=== PATIENT | male | born 1940 | race Caucasian/White ===

== ENCOUNTER 2021-10-10 14:38 | Inpatient (IN) ==
[2021-10-11 06:52] LABS: Basophils % 0.2 %; Eosinophils # 0.4 K/mcL (0.0-0.6); Hemoglobin 9.8 g/dL (12.9-16.9); Immature Granulocytes % 0.7 % (0-4); Lymphocytes # 2.1 K/mcL (0.6-4.6); Lymphocytes % 23.8 %; Mean Corpuscular HGB Conc 32.7 g/dL (31.6-35.5); Mean Corpuscular Volume 88.8 fL (83.0-100.0); Monocytes # 0.8 K/mcL (0.0-1.3); Monocytes % 9.4 %; Neutrophils # 5.5 K/mcL (1.6-8.9); Platelet Count 243 K/mcL (140-400); Red Blood Count 3.38 M/mcL (4.19-5.50); Segmented Neutrophils % 61.9 %; White Blood Count 8.8 K/mcL (4.3-11.1)
[2021-10-11 07:03] LABS: INR 1.1; Prothrombin Time 12.6 Seconds (9.4-12.1)
[2021-10-11 07:19] LABS: Calcium 9.4 mg/dL (8.6-10.3); Potassium 4.7 mEq/L (3.5-5.1)
[2021-10-11] MEDS ORDERED: *HR* Dextrose 50 % in Water (Syg) 50 ML SYRINGE IVP PRN (08:36)
[2021-10-11] MEDS ORDERED: D5% in Water 1,000 ML IVC PRN (08:36)
[2021-10-11] MEDS ORDERED: Dextrose 4 GM Chewable Tablets PO PRN ×2 (08:36)
[2021-10-11] MEDS: *HR* GlyBURIDE 2.5 MG TABLET PO SCH ×2 (08:50→21:08)
[2021-10-11] MEDS: lisinopriL 5 MG TABLET PO SCH (08:51)
[2021-10-11] MEDS: Insulin LISPRO 300 UNITS/3 ML VIAL SUBQ SCH ×4 (08:51→21:00)
[2021-10-11] MEDS: rOPINIRole 1 MG TABLET PO SCH (08:51)
[2021-10-11] MEDS: *HR* Amiodarone 200 MG TABLET PO SCH ×2 (08:51→21:09)
[2021-10-11] MEDS: *HR* Pioglitazone 30 MG TABLET PO SCH (08:53)
[2021-10-11] MEDS: Aspirin Enteric Coated 81 MG Tablet PO SCH (08:53)
[2021-10-11] MEDS: Metoprolol XL (24 HR) Succ 50 MG TAB.ER.24H PO SCH (08:53)
[2021-10-11] MEDS ORDERED: 0.9 % Sodium Chloride 1,000 ML IVC SCH (15:45)
[2021-10-11] MEDS: *HR* Heparin 5,000 UNIT/ML VIAL SQ SCH (21:09)
[2021-10-12] MEDS: *HR* Heparin 5,000 UNIT/ML VIAL SQ SCH ×3 (05:17→21:34)
[2021-10-12 06:23] LABS: Basophils % 0.3 %; Eosinophils # 0.3 K/mcL (0.0-0.6); Eosinophils % 3.3 %; Hemoglobin 9.3 g/dL (12.9-16.9); Immature Granulocytes % 0.9 % (0-4); Lymphocytes # 2.1 K/mcL (0.6-4.6); Lymphocytes % 21.9 %; Mean Corpuscular HGB Conc 32.1 g/dL (31.6-35.5); Mean Corpuscular Volume 90.3 fL (83.0-100.0); Mean Platelet Volume 9.9 fL (9.4-12.4); Monocytes # 1.1 K/mcL (0.0-1.3); Monocytes % 11.1 %; Platelet Count 254 K/mcL (140-400); Red Blood Count 3.21 M/mcL (4.19-5.50); Red Cell Distribution Width 13.2 % (11.5-14.5); Segmented Neutrophils % 62.5 %; White Blood Count 9.7 K/mcL (4.3-11.1)
[2021-10-12 07:07] LABS: BUN/Creatinine Ratio 26 (6-26); Blood Urea Nitrogen 34 mg/dL (8-23); Carbon Dioxide 28 mEq/L (23-29); Chloride 102 mEq/L (98-107); Glucose 236 mg/dL (70-105); Osmolality,Calculated 301 (280-300); Potassium 4.4 mEq/L (3.5-5.1); Sodium 138 mEq/L (136-145); eGFR For African Americans > 60 (> 60); eGFR For Non-African Americans 52 (> 60)
[2021-10-12] MEDS: Aspirin Enteric Coated 81 MG Tablet PO SCH (08:51)
[2021-10-12] MEDS: *HR* Amiodarone 200 MG TABLET PO SCH ×2 (08:51→21:34)
[2021-10-12] MEDS: *HR* GlyBURIDE 2.5 MG TABLET PO SCH ×2 (08:51→17:10)
[2021-10-12] MEDS: *HR* Pioglitazone 30 MG TABLET PO SCH (08:51)
[2021-10-12] MEDS: rOPINIRole 1 MG TABLET PO SCH (08:51)
[2021-10-12] MEDS: lisinopriL 5 MG TABLET PO SCH (08:51)
[2021-10-12] MEDS: Metoprolol XL (24 HR) Succ 50 MG TAB.ER.24H PO SCH (08:51)
[2021-10-12] MEDS: Insulin LISPRO 300 UNITS/3 ML VIAL SUBQ SCH ×4 (08:52→21:34)
[2021-10-12] MEDS: *HR* HYDROcodone/Acet 5/325 mg TABLET PO PRN ×2 (11:50→21:35)
[2021-10-12] MEDS: Sennosides 8.6 MG TABLET PO SCH (21:33)
[2021-10-13] MEDS: *HR* Heparin 5,000 UNIT/ML VIAL SQ SCH ×3 (05:23→20:46)
[2021-10-13] MEDS: *HR* HYDROcodone/Acet 5/325 mg TABLET PO PRN (05:35)
[2021-10-13] MEDS: *HR* Amiodarone 200 MG TABLET PO SCH ×2 (08:42→20:47)
[2021-10-13] MEDS: rOPINIRole 1 MG TABLET PO SCH (08:42)
[2021-10-13] MEDS: Metoprolol XL (24 HR) Succ 50 MG TAB.ER.24H PO SCH (08:42)
[2021-10-13] MEDS: *HR* GlyBURIDE 2.5 MG TABLET PO SCH ×2 (08:42→16:37)
[2021-10-13] MEDS: lisinopriL 5 MG TABLET PO SCH (08:42)
[2021-10-13] MEDS: Insulin LISPRO 300 UNITS/3 ML VIAL SUBQ SCH ×4 (08:42→20:47)
[2021-10-13] MEDS: Aspirin Enteric Coated 81 MG Tablet PO SCH (08:42)
[2021-10-13] MEDS: *HR* Pioglitazone 30 MG TABLET PO SCH (08:42)
[2021-10-13] MEDS: Sennosides 8.6 MG TABLET PO SCH ×2 (08:42→20:46)
[2021-10-14] MEDS: *HR* Heparin 5,000 UNIT/ML VIAL SQ SCH ×3 (05:34→20:46)
[2021-10-14] MEDS: Metoprolol XL (24 HR) Succ 50 MG TAB.ER.24H PO SCH (09:17)
[2021-10-14] MEDS: lisinopriL 5 MG TABLET PO SCH (09:17)
[2021-10-14] MEDS: Sennosides 8.6 MG TABLET PO SCH ×2 (09:17→20:46)
[2021-10-14] MEDS: rOPINIRole 1 MG TABLET PO SCH (09:17)
[2021-10-14] MEDS: *HR* Pioglitazone 30 MG TABLET PO SCH (09:17)
[2021-10-14] MEDS: *HR* GlyBURIDE 2.5 MG TABLET PO SCH ×2 (09:17→17:26)
[2021-10-14] MEDS: *HR* Amiodarone 200 MG TABLET PO SCH ×2 (09:17→20:46)
[2021-10-14] MEDS: Aspirin Enteric Coated 81 MG Tablet PO SCH (09:17)
[2021-10-14] MEDS: Insulin LISPRO 300 UNITS/3 ML VIAL SUBQ SCH ×4 (09:18→20:45)
[2021-10-14 09:34] LABS: Alanine Aminotransferase 7 Units/L (7-52); Albumin 3.3 g/dL (3.5-5.7); Albumin/Globulin Ratio 1.3 (1.1-2.2); Alkaline Phosphatase 48 Units/L (34-104); Aspartate Amino Transferase 11 Units/L (13-39); BUN/Creatinine Ratio 19 (6-26); Bilirubin,Total 0.6 mg/dL (0.3-1.0); Blood Urea Nitrogen 24 mg/dL (8-23); Calcium 9.1 mg/dL (8.6-10.3); Carbon Dioxide 24 mEq/L (23-29); Chloride 101 mEq/L (98-107); Globulin 2.6 g/dL (2.4-3.5); Glucose 181 mg/dL (70-105); Magnesium 1.5 mg/dL (1.6-2.6); Osmolality,Calculated 291 (280-300); Potassium 3.9 mEq/L (3.5-5.1); Sodium 136 mEq/L (136-145); Total Protein 5.9 g/dL (6.4-8.9); eGFR For African Americans > 60 (> 60); eGFR For Non-African Americans 55 (> 60)
[2021-10-14 10:35] LABS: Basophils % 0.4 %; Eosinophils # 0.3 K/mcL (0.0-0.6); Eosinophils % 2.6 %; Hematocrit 27.3 % (37.5-50.1); Hemoglobin 8.8 g/dL (12.9-16.9); Immature Granulocytes % 0.5 % (0-4); Lymphocytes # 1.7 K/mcL (0.6-4.6); Lymphocytes % 17.3 %; Mean Corpuscular HGB Conc 32.2 g/dL (31.6-35.5); Mean Corpuscular Hemoglobin 29.1 pg (28.0-33.3); Mean Corpuscular Volume 90.4 fL (83.0-100.0); Mean Platelet Volume 9.8 fL (9.4-12.4); Monocytes % 9.6 %; Neutrophils # 6.9 K/mcL (1.6-8.9); Platelet Count 260 K/mcL (140-400); Red Blood Count 3.02 M/mcL (4.19-5.50); Red Cell Distribution Width 13.3 % (11.5-14.5); Segmented Neutrophils % 69.6 %; White Blood Count 9.9 K/mcL (4.3-11.1)
[2021-10-15] MEDS: *HR* HYDROcodone/Acet 5/325 mg TABLET PO PRN (00:30)
[2021-10-15] MEDS: *HR* Heparin 5,000 UNIT/ML VIAL SQ SCH ×3 (05:56→22:25)
[2021-10-15] MEDS: Insulin LISPRO 300 UNITS/3 ML VIAL SUBQ SCH ×4 (08:17→22:26)
[2021-10-15] MEDS: rOPINIRole 1 MG TABLET PO SCH (08:18)
[2021-10-15] MEDS: *HR* GlyBURIDE 2.5 MG TABLET PO SCH ×2 (08:18→17:25)
[2021-10-15] MEDS: Aspirin Enteric Coated 81 MG Tablet PO SCH (08:18)
[2021-10-15] MEDS: lisinopriL 5 MG TABLET PO SCH (08:18)
[2021-10-15] MEDS: *HR* Amiodarone 200 MG TABLET PO SCH ×2 (08:18→22:25)
[2021-10-15] MEDS: Metoprolol XL (24 HR) Succ 50 MG TAB.ER.24H PO SCH (08:18)
[2021-10-15] MEDS: *HR* Pioglitazone 30 MG TABLET PO SCH (08:19)
[2021-10-15] MEDS: Sennosides 8.6 MG TABLET PO SCH ×2 (11:29→22:27)
[2021-10-16] MEDS: *HR* Heparin 5,000 UNIT/ML VIAL SQ SCH ×3 (04:17→21:18)
[2021-10-16 05:04] LABS: Basophils % 0.4 %; Eosinophils # 0.4 K/mcL (0.0-0.6); Eosinophils % 5.2 %; Hematocrit 27.8 % (37.5-50.1); Hemoglobin 8.8 g/dL (12.9-16.9); Immature Granulocytes % 0.5 % (0-4); Lymphocytes # 2.4 K/mcL (0.6-4.6); Lymphocytes % 31.5 %; Mean Corpuscular HGB Conc 31.7 g/dL (31.6-35.5); Mean Corpuscular Hemoglobin 28.6 pg (28.0-33.3); Mean Corpuscular Volume 90.3 fL (83.0-100.0); Mean Platelet Volume 9.9 fL (9.4-12.4); Monocytes # 0.7 K/mcL (0.0-1.3); Monocytes % 9.1 %; Platelet Count 311 K/mcL (140-400); Red Blood Count 3.08 M/mcL (4.19-5.50); Red Cell Distribution Width 13.3 % (11.5-14.5); Segmented Neutrophils % 53.3 %; White Blood Count 7.5 K/mcL (4.3-11.1)
[2021-10-16 05:20] LABS: Alanine Aminotransferase 7 Units/L (7-52); Albumin 3.2 g/dL (3.5-5.7); Albumin/Globulin Ratio 1.2 (1.1-2.2); Alkaline Phosphatase 49 Units/L (34-104); Aspartate Amino Transferase 10 Units/L (13-39); BUN/Creatinine Ratio 17 (6-26); Bilirubin,Total 0.5 mg/dL (0.3-1.0); Blood Urea Nitrogen 23 mg/dL (8-23); Calcium 9.2 mg/dL (8.6-10.3); Carbon Dioxide 24 mEq/L (23-29); Chloride 104 mEq/L (98-107); Globulin 2.6 g/dL (2.4-3.5); Glucose 165 mg/dL (70-105); Magnesium 1.4 mg/dL (1.6-2.6); Osmolality,Calculated 295 (280-300); Sodium 139 mEq/L (136-145); Total Protein 5.8 g/dL (6.4-8.9); eGFR For African Americans > 60 (> 60); eGFR For Non-African Americans 52 (> 60)
[2021-10-16] MEDS: *HR* GlyBURIDE 2.5 MG TABLET PO SCH ×2 (08:16→16:52)
[2021-10-16] MEDS: rOPINIRole 1 MG TABLET PO SCH (08:16)
[2021-10-16] MEDS: *HR* Pioglitazone 30 MG TABLET PO SCH (08:16)
[2021-10-16] MEDS: Sennosides 8.6 MG TABLET PO SCH ×2 (08:17→21:17)
[2021-10-16] MEDS: Metoprolol XL (24 HR) Succ 50 MG TAB.ER.24H PO SCH (08:17)
[2021-10-16] MEDS: lisinopriL 5 MG TABLET PO SCH (08:17)
[2021-10-16] MEDS: Insulin LISPRO 300 UNITS/3 ML VIAL SUBQ SCH ×4 (08:18→21:17)
[2021-10-16] MEDS: *HR* Amiodarone 200 MG TABLET PO SCH ×2 (08:18→21:17)
[2021-10-16] MEDS: Aspirin Enteric Coated 81 MG Tablet PO SCH (11:53)
[2021-10-16] MEDS: Magnesium Oxide 400 MG TABLET PO SCH (11:53)
[2021-10-16] MEDS: *HR* HYDROcodone/Acet 5/325 mg TABLET PO PRN (21:26)
[2021-10-17] MEDS: *HR* HYDROcodone/Acet 5/325 mg TABLET PO PRN (01:52)
[2021-10-17] MEDS: *HR* Heparin 5,000 UNIT/ML VIAL SQ SCH (05:57)
[2021-10-17] MEDS: rOPINIRole 1 MG TABLET PO SCH (08:30)
[2021-10-17] MEDS: Metoprolol XL (24 HR) Succ 50 MG TAB.ER.24H PO SCH (08:30)
[2021-10-17] MEDS: Aspirin Enteric Coated 81 MG Tablet PO SCH (08:31)
[2021-10-17] MEDS: *HR* Amiodarone 200 MG TABLET PO SCH (08:31)
[2021-10-17] MEDS: Sennosides 8.6 MG TABLET PO SCH (08:31)
[2021-10-17] MEDS: Magnesium Oxide 400 MG TABLET PO SCH (08:31)
[2021-10-17] MEDS: *HR* GlyBURIDE 2.5 MG TABLET PO SCH (08:31)
[2021-10-17] MEDS: *HR* Pioglitazone 30 MG TABLET PO SCH (08:31)
[2021-10-17] MEDS: lisinopriL 5 MG TABLET PO SCH (08:31)
[2021-10-17] MEDS: Insulin LISPRO 300 UNITS/3 ML VIAL SUBQ SCH ×2 (08:32→12:10)
[2021-10-17 10:54] VITALS: BP 122/71; PULSE 69; RESP 17; TEMP 98; O2SAT 97
== END 2021-10-17 14:27 | disposition home health service (06) | DRG 281 ==
LOC: INPGRE 19:50
PROVIDERS: ADMIT Internal Medicine; ATTEND Internal Medicine